=== PATIENT | male | born 1960 | race Caucasian/White ===

== ENCOUNTER 2017-10-07 09:46 | Inpatient (IN) | payer BC ==
[~2017-10-07] VITALS: Ht 175.3 cm; Wt 78.9 kg
[~2017-10-07 09:46] MED LIST: BUPIVACAINE /PF 0.25% 30 ML VIAL INJ ONE; EPINEPHrine 1 MG/ML AMP IV ONE; MIDAZOLAM HCL 5 MG/5 ML VIAL IVP ONE; NS IRRIG SOLN 1000 ML IR ONE; PROPOFOL 200MG/ 20ML VIAL (DIPRIVAN) IV ONE; SEVOFLURANE 15 MIN GAS INH ONE; fentaNYL CITRATE/PF 100 MCG/2 ML AMP IVP ONE
[2017-10-07 09:48] VITALS: BP_SYST 125
[2017-10-07] MEDS ORDERED: NS 1000 ML IV.SOLN IV ONE (10:15)
[2017-10-07] MEDS ORDERED: fentaNYL CITRATE/PF 100 MCG/2 ML AMP IVP ONE (10:30)
[2017-10-07 10:45] LABS: HEMATOCRIT 43.2 % (36-54); RED CELL DISTRIBUTION WIDTH 15.1 % (9.0-15.0)
[2017-10-07 10:50] LABS: BASOPHILS % (AUTO) 0.2 % (0.0-2.0); EOSINOPHILS # (AUTO) 0.1 K/uL (0.0-0.4); EOSINOPHILS % (AUTO) 0.3 % (0.0-4.0); HEMOGLOBIN 14.3 g/dL (14.0-18.0); LYMPHOCYTES # (AUTO) 1.9 K/uL (1.0-5.5); MEAN CORPUSCULAR HEMOGLOBIN 27 pg (27-31); MEAN CORPUSCULAR HGB CONC 33 % (32-36); MEAN CORPUSCULAR VOLUME 83 fL (79.0-98.0); MONOCYTES # (AUTO) 1.2 K/uL (0.0-1.0); MONOCYTES % (AUTO) 6.3 % (1.7-9.3); NEUTROPHILS # (AUTO) 15.8 K/uL (1.8-7.7); NEUTROPHILS % (AUTO) 83.2 % (40.0-70.0); PLATELET COUNT (AUTO) 222 K/uL (130-430); RED BLOOD CELL COUNT(AUTO) 5.23 MIL/uL (4.2-6.2)
[2017-10-07 10:54] LABS: CALCIUM 8.9 mg/dL (8.4-11.0); POTASSIUM 3.6 mmol/L (3.5-5.1)
[2017-10-07 10:55] LABS: INR 1.1 (0.80-1.20); PROTHROMBIN TIME 11.1 SECS (9.5-12.5)
[2017-10-07 11:10] LABS: ALBUMIN 3.2 g/dL (3.4-4.8); TOTAL BILIRUBIN 0.9 mg/dL (0.0-1.0)
[2017-10-07 11:37] LABS: BILIRUBIN,URINE 1+ (NEGATIVE); BLOOD, URINE 2+ (NEGATIVE); CLARITY/URINE SL HAZY (CLEAR); COLOR,URINE YELLOW (YELLOW); GLUCOSE,URINE NEGATIVE (NEGATIVE); KETONES,URINE TRACE (NEGATIVE); LEUKOCYTE ESTERASE ,URINE 2+ (NEGATIVE); NITRITE, URINE POSITIVE (NEGATIVE); PH,URINE 5.5 (5.0-8.0); PROTEIN URINE 1+ (NEGATIVE)
[2017-10-07] MEDS ORDERED: LEVOFLOXACIN 500 MG/D5W 100 ML IV ONE (11:45)
[2017-10-07 11:50] LABS: BACTERIA,URINE FEW /HPF (None Seen); RBC,URINE 50-80 /HPF (0-3); WBC,URINE 80-100 /HPF (0-3)
[2017-10-07] MEDS ORDERED: OMEP20CA10 PO (13:11)
[2017-10-07] MEDS ORDERED: ALBU8.5H8 INH (13:11)
[2017-10-07 13:26] VITALS: BP_SYST 123
[2017-10-07] MEDS ORDERED: MORPHINE 2 MG/ML INJ. SYRINGE IVP ONE (15:00)
[2017-10-07] MEDS ORDERED: ONDANSETRON HCL 4 MG/2 ML VIAL IVP PRN (15:00)
[2017-10-07 15:09] VITALS: BP_SYST 143
[2017-10-07] MEDS: PIPERACILLIN/TAZO 3.375 GM in NS 50 ML IV SCH ×2 (15:51→20:32)
[2017-10-07] MEDS: NACL 0.9% 1,000 ML IV SCH (15:51)
[2017-10-07] MEDS: MORPHINE 4 MG/ML INJ. SYRINGE IVP PRN (18:46)
[2017-10-07 19:27] VITALS: BP_SYST 111
[2017-10-07] MEDS: ACETAMINOPHEN 325 MG TABLET PO PRN (20:30)
[2017-10-08 01:05] VITALS: BP_SYST 106
[2017-10-08] MEDS: PIPERACILLIN/TAZO 3.375 GM in NS 50 ML IV SCH ×4 (02:53→20:39)
[2017-10-08] MEDS: NACL 0.9% 1,000 ML IV SCH ×2 (02:53→13:25)
[2017-10-08] MEDS: MORPHINE 4 MG/ML INJ. SYRINGE IVP PRN ×4 (06:07→20:38)
[2017-10-08 08:18] VITALS: BP_SYST 117
[2017-10-08 12:00] VITALS: BP_SYST 115; BP_SYST 141
[2017-10-08 12:09] LABS: BASOPHILS % (AUTO) 0.2 % (0.0-2.0); EOSINOPHILS # (AUTO) 0.1 K/uL (0.0-0.4); EOSINOPHILS % (AUTO) 0.5 % (0.0-4.0); HEMATOCRIT 38.7 % (36-54); HEMOGLOBIN 12.7 g/dL (14.0-18.0); LYMPHOCYTES # (AUTO) 1.4 K/uL (1.0-5.5); LYMPHOCYTES % (AUTO) 9.7 % (20.5-51.5); MEAN CORPUSCULAR HEMOGLOBIN 27 pg (27-31); MEAN CORPUSCULAR HGB CONC 33 % (32-36); MEAN CORPUSCULAR VOLUME 82 fL (79.0-98.0); MONOCYTES % (AUTO) 6.7 % (1.7-9.3); NEUTROPHILS % (AUTO) 82.9 % (40.0-70.0); PLATELET COUNT (AUTO) 203 K/uL (130-430); RED BLOOD CELL COUNT(AUTO) 4.71 MIL/uL (4.2-6.2); RED CELL DISTRIBUTION WIDTH 15.4 % (9.0-15.0); WHITE BLOOD COUNT (AUTO) 14.5 K/uL (4.8-10.8)
[2017-10-08] MEDS: CLINDAMYCIN 600 MG in D5W 50 ML IV SCH ×2 (13:25→20:39)
[2017-10-08 16:00] VITALS: BP_SYST 110
[2017-10-08 20:00] VITALS: BP_SYST 127
[2017-10-09 00:25] VITALS: BP_SYST 114
[2017-10-09] MEDS: NACL 0.9% 1,000 ML IV SCH ×3 (02:34→17:06)
[2017-10-09] MEDS: PIPERACILLIN/TAZO 3.375 GM in NS 50 ML IV SCH ×4 (03:06→21:20)
[2017-10-09 08:00] VITALS: BP_SYST 145
[2017-10-09] MEDS: MORPHINE 4 MG/ML INJ. SYRINGE IVP PRN ×3 (08:23→17:16)
[2017-10-09] MEDS: CLINDAMYCIN 600 MG in D5W 50 ML IV SCH ×2 (09:30→20:23)
[2017-10-09 12:19] VITALS: BP_SYST 126
[2017-10-09 16:39] VITALS: BP_SYST 111
[2017-10-09 20:00] VITALS: BP_SYST 125
[2017-10-09] MEDS: MORPHINE 2 MG/ML INJ. SYRINGE IVP PRN (21:21)
[2017-10-10 00:07] VITALS: BP_SYST 118
[2017-10-10] MEDS: PIPERACILLIN/TAZO 3.375 GM in NS 50 ML IV SCH ×2 (02:05→09:22)
[2017-10-10] MEDS: NACL 0.9% 1,000 ML IV SCH ×2 (02:05→13:34)
[2017-10-10] MEDS: MORPHINE 2 MG/ML INJ. SYRINGE IVP PRN ×4 (05:27→18:34)
[2017-10-10 08:27] VITALS: BP_SYST 144
[2017-10-10] MEDS: CLINDAMYCIN 600 MG in D5W 50 ML IV SCH ×2 (08:47→21:51)
[2017-10-10 12:13] VITALS: BP_SYST 134
[2017-10-10] MEDS ORDERED: cefTRIAXone 1 GM in D5W 50 ML IV ONE (13:00)
[2017-10-10 16:48] VITALS: BP_SYST 135
[2017-10-10] MEDS: ACETAMINOPHEN 325 MG TABLET PO PRN (17:09)
[2017-10-10 20:00] VITALS: BP_SYST 142
[2017-10-10] MEDS: MORPHINE 4 MG/ML INJ. SYRINGE IVP PRN (22:47)
[2017-10-10 22:49] VITALS: BP_SYST 142
[2017-10-11] MEDS: NACL 0.9% 1,000 ML IV SCH ×4 (00:22→23:43)
[2017-10-11 02:12] LABS: CHLAMYDIA TRACHOMATIS NAA Negative (Negative); NEISSERIA GONORRHOEAE NAA Negative (Negative)
[2017-10-11 07:40] LABS: BASOPHILS # (AUTO) 0.1 K/uL (0.0-0.2); EOSINOPHILS # (AUTO) 0.3 K/uL (0.0-0.4); EOSINOPHILS % (AUTO) 3.6 % (0.0-4.0); HEMATOCRIT 37.7 % (36-54); HEMOGLOBIN 12.1 g/dL (14.0-18.0); LYMPHOCYTES # (AUTO) 1.4 K/uL (1.0-5.5); LYMPHOCYTES % (AUTO) 19.5 % (20.5-51.5); MEAN CORPUSCULAR HEMOGLOBIN 27 pg (27-31); MEAN CORPUSCULAR HGB CONC 32 % (32-36); MEAN CORPUSCULAR VOLUME 83 fL (79.0-98.0); MONOCYTES # (AUTO) 0.7 K/uL (0.0-1.0); MONOCYTES % (AUTO) 9.5 % (1.7-9.3); NEUTROPHILS # (AUTO) 4.5 K/uL (1.8-7.7); NEUTROPHILS % (AUTO) 66.4 % (40.0-70.0); PLATELET COUNT (AUTO) 213 K/uL (130-430); RED BLOOD CELL COUNT(AUTO) 4.55 MIL/uL (4.2-6.2)
[2017-10-11] MEDS: CLINDAMYCIN 600 MG in D5W 50 ML IV SCH ×2 (07:57→20:35)
[2017-10-11 08:00] VITALS: BP_SYST 148
[2017-10-11 08:27] LABS: ALBUMIN 2.4 g/dL (3.4-4.8); CALCIUM 8.2 mg/dL (8.4-11.0); CREATININE 0.61 mg/dL (0.55-1.30); POTASSIUM 3.3 mmol/L (3.5-5.1); TOTAL BILIRUBIN 0.3 mg/dL (0.0-1.0)
[2017-10-11] MEDS ORDERED: fentaNYL CITRATE/PF 100 MCG/2 ML AMP IVP PRN ×2 (09:15)
[2017-10-11] MEDS ORDERED: ONDANSETRON HCL 4 MG/2 ML VIAL IVP PRN (09:15)
[2017-10-11] MEDS ORDERED: KETOROLAC TROMETHAMINE 30 MG VIAL IVP PRN (09:15)
[2017-10-11] MEDS: MORPHINE 2 MG/ML INJ. SYRINGE IVP PRN ×2 (10:16→18:20)
[2017-10-11] MEDS: cefTRIAXone 1 GM in D5W 50 ML IV SCH (10:20)
[2017-10-11 10:37] VITALS: BP_SYST 148
[2017-10-11 12:12] VITALS: BP_SYST 130
[2017-10-11] MEDS: MORPHINE 4 MG/ML INJ. SYRINGE IVP PRN ×2 (13:42→22:01)
[2017-10-11] MEDS ORDERED: POTASSIUM CHLORIDE 20 MEQ TAB.PRT.SR PO ONE (15:45)
[2017-10-11 16:10] VITALS: BP_SYST 146
[2017-10-11] MEDS: ACETAMINOPHEN 325 MG TABLET PO PRN (16:46)
[2017-10-11 20:06] VITALS: BP_SYST 140
[2017-10-12] VITALS: BP_SYST 128
[2017-10-12] MEDS: MORPHINE 4 MG/ML INJ. SYRINGE IVP PRN ×2 (02:27→14:00)
[2017-10-12] MEDS: MORPHINE 2 MG/ML INJ. SYRINGE IVP PRN (06:32)
[2017-10-12 07:13] LABS: ALBUMIN 2.1 g/dL (3.4-4.8); CALCIUM 8.2 mg/dL (8.4-11.0); CREATININE 0.67 mg/dL (0.55-1.30); POTASSIUM 3.7 mmol/L (3.5-5.1); TOTAL BILIRUBIN 0.4 mg/dL (0.0-1.0)
[2017-10-12 07:34] LABS: HEMOGLOBIN 11.9 g/dL (14.0-18.0); MEAN CORPUSCULAR HGB CONC 33 % (32-36)
[2017-10-12 08:05] VITALS: BP_SYST 141
[2017-10-12 08:08] LABS: BASOPHILS # (AUTO) 0.2 K/uL (0.0-0.2); BASOPHILS % (AUTO) 1.4 % (0.0-2.0); EOSINOPHILS # (AUTO) 0.1 K/uL (0.0-0.4); HEMATOCRIT 36.3 % (36-54); LYMPHOCYTES # (AUTO) 1.4 K/uL (1.0-5.5); LYMPHOCYTES % (AUTO) 11.9 % (20.5-51.5); MEAN CORPUSCULAR HEMOGLOBIN 27 pg (27-31); MEAN CORPUSCULAR VOLUME 82 fL (79.0-98.0); MONOCYTES # (AUTO) 0.9 K/uL (0.0-1.0); MONOCYTES % (AUTO) 7.8 % (1.7-9.3); NEUTROPHILS # (AUTO) 9.3 K/uL (1.8-7.7); NEUTROPHILS % (AUTO) 77.9 % (40.0-70.0); PLATELET COUNT (AUTO) 222 K/uL (130-430); RED BLOOD CELL COUNT(AUTO) 4.41 MIL/uL (4.2-6.2); RED CELL DISTRIBUTION WIDTH 14.5 % (9.0-15.0); WHITE BLOOD COUNT (AUTO) 11.9 K/uL (4.8-10.8)
[2017-10-12] MEDS: cefTRIAXone 1 GM in D5W 50 ML IV SCH (08:47)
[2017-10-12] MEDS: HYDROcodone/ACETAMIN 5-325 MG TAB (NORCO/ VICODIN) PO PRN ×2 (09:26→18:22)
[2017-10-12] MEDS: CLINDAMYCIN 600 MG in D5W 50 ML IV SCH ×2 (09:26→20:11)
[2017-10-12 12:00] VITALS: BP_SYST 136
[2017-10-12 16:27] VITALS: BP_SYST 139
[2017-10-12 19:45] VITALS: BP_SYST 142
[2017-10-13] VITALS (7 sets, daily range): BP systolic 124–146
[2017-10-13] MEDS: MORPHINE 4 MG/ML INJ. SYRINGE IVP PRN ×3 (03:24→23:21)
[2017-10-13] MEDS: HYDROcodone/ACETAMIN 5-325 MG TAB (NORCO/ VICODIN) PO PRN ×2 (08:35→18:06)
[2017-10-13] MEDS: CLINDAMYCIN 600 MG in D5W 50 ML IV SCH ×2 (08:36→20:01)
[2017-10-13] MEDS: cefTRIAXone 1 GM in D5W 50 ML IV SCH (08:37)
[2017-10-14] MEDS: HYDROcodone/ACETAMIN 5-325 MG TAB (NORCO/ VICODIN) PO PRN ×2 (06:17→12:53)
[2017-10-14 08:00] VITALS: BP_SYST 139
[2017-10-14] MEDS: CLINDAMYCIN 600 MG in D5W 50 ML IV SCH (08:38)
[2017-10-14] MEDS: MORPHINE 4 MG/ML INJ. SYRINGE IVP PRN ×2 (08:39→15:02)
[2017-10-14] MEDS: cefTRIAXone 1 GM in D5W 50 ML IV SCH (09:45)
[2017-10-14 12:00] VITALS: BP_SYST 136
[2017-10-14] MEDS ORDERED: METR500T PO (16:57)
[2017-10-14] MEDS ORDERED: LEVO500T20 PO (16:58)
[2017-10-14 17:10] VITALS: BP_SYST 135
== END 2017-10-14 17:46 | disposition home or self-care (01) | DRG 728 ==
LOC: SED 09:46 → SMU 12:51
PROVIDERS: ADMIT Internal Medicine Hospice and Palliative Medicine; ATTEND Internal Medicine Hospice and Palliative Medicine
PROC: 0V953ZZ Drainage of Scrotum, Percutaneous Approach (ICD-10-PCS; principal; 2017-10-11 08:30)
DX: N45.3 Epididymo-orchitis (principal); N39.0 Urinary tract infection, site not specified; K40.91 Unilateral inguinal hernia, without obstruction or gangrene, recurrent; J45.909 Unspecified asthma, uncomplicated; N43.3 Hydrocele, unspecified; N20.0 Calculus of kidney; D72.829 Elevated white blood cell count, unspecified; B96.20 Unspecified Escherichia coli [E. coli] as the cause of diseases classified elsewhere; Z79.2 Long term (current) use of antibiotics; Z79.899 Other long term (current) drug therapy
CPT/HCPCS: 36415; 71045; 76870-TC; 80053; 81000-TC; 83605; 85025; 85610-TC; 85730-TC; 86886; 86900; 86901; 87040-TC; 87070; 87070-TC; 87075-TC; 87081; 87086; 87186-TC; 87491; 87591; 88305; 93005; 94010; 94760; 96361; 96365; 96375; 99285; J0171; J0696; J1956; J2250; J2270; J2405; J2543; J2704; J3010; J3490; J7030; J7060

== ENCOUNTER 2023-03-06 10:19 | Outpatient (CLI) | payer OTHER ==
[~2023-03-06 10:19] MED LIST changes: +ALBU8.5H8 INH; -BUPIVACAINE /PF 0.25% 30 ML VIAL INJ ONE; -EPINEPHrine 1 MG/ML AMP IV ONE; +LEVO500T20 PO; +METR500T PO; -MIDAZOLAM HCL 5 MG/5 ML VIAL IVP ONE; -NS IRRIG SOLN 1000 ML IR ONE; +OMEP20CA15 PO; -PROPOFOL 200MG/ 20ML VIAL (DIPRIVAN) IV ONE; -SEVOFLURANE 15 MIN GAS INH ONE; -fentaNYL CITRATE/PF 100 MCG/2 ML AMP IVP ONE
[2023-03-06 10:49] LABS: ABG O2 SAT% ESTIMATE 92.5 % (94.0-100.0); ALLEN'S TEST POSITIVE (P); BLOOD GAS BASE EXCESS 0.2 mmol/L (-3.0-3.0); BLOOD GAS HCO3 24.2 mmol/L (21.0-27.0); BLOOD GAS PCO2 37.5 mmHg (32.0-45.0); BLOOD GAS PH 7.428 (7.350-7.450); BLOOD GAS PO2 62.1 mmHg (75.0-100.0)
== END 2023-03-06 18:18 | disposition home or self-care (01) ==
LOC: SCA 10:19
PROVIDERS: ATTEND Internal Medicine
DX: J47.9 Bronchiectasis, uncomplicated (principal)
CPT/HCPCS: 82803